=== PATIENT | male | born 1975 | race Two or more races ===

== ENCOUNTER 2017-11-24 17:39 | Emergency (ER) | payer OTHER ==
--- NOTE | 2017-11-24 19:43 | ED Physician Documentation ---
PD HPI LOWER EXT INJURY - Stated complaint Stated Complaint: ANKLE PX - Chief complaint Chief Complaint: Ext Problem - History obtained from History obtained from: Patient - History of Present Illness PD HPI LOW EXT INJURY LOCATION: Right, Ankle Type of injury: No: Fall, Twist, Puncture wound Where injury occurred: Home Timing - onset: Today Timing - duration: Days (1) Timing - details: Gradual onset, Waxing and waning Worsened by: Palpating Associated symptoms: Swelling, Discolored (red). No: Weakness, Numbness Similar symptoms before: Has not had sx before Recently seen: Not recently seen Review of Systems Constitutional: denies: Fever, Chills, Myalgias Nose: denies: Rhinorrhea / runny nose, Congestion Throat: denies: Sore throat Cardiac: denies: Chest pain / pressure, Palpitations Respiratory: denies: Dyspnea, Cough, Wheezing Skin: reports: Rash. denies: Abrasion (s), Laceration (s) Neurologic: denies: Generalized weakness, Focal weakness, Numbness PD PAST MEDICAL HISTORY - Past Medical History Cardiovascular: None Respiratory: None Neuro: None Endocrine/Autoimmune: None Musculoskeletal: None - Present Medications Home Medications: Ambulatory Orders Medication Instructions Recorded Confirmed Dexamethasone [Decadron] 4 mg PO DAILY #5 tablet 11/24/17 Naproxen [Naprosyn] 500 mg PO BID #20 tablet 11/24/17 - Allergies Allergies/Adverse Reactions: Allergies Allergy/AdvReac Type Severity Reaction Status Date / Time No Known Drug Allergies Allergy Verified 11/24/17 17:58 PD ED PE NORMAL - Vitals Vital signs reviewed: Yes - General General: Alert and oriented X 3, No acute distress, Well developed/nourished - Neck Neck: Supple, no meningeal sign, No adenopathy - Cardiac Cardiac: RRR, No murmur - Respiratory Respiratory: Clear bilaterally - Derm Derm: Normal color, Warm and dry - Extremities Extremities: No edema, No calf tenderness / cord, Other (tender with swelling and redness anterolateal ankle and proximal foot. No skin sores nor lesions. ) Results - Vitals Vitals: Oxygen O2 Source Room air PD MEDICAL DECISION MAKING - ED course Complexity details: considered differential (anterolateral ankle and lateral dorsum of foot with tenderness and redness without injury. No h/o gout in the past but seems likely. No signs of infection. ), d/w patient - Sepsis Event Vital Signs: Oxygen O2 Source Room air Departure - Departure Disposition: 01 Home, Self Care Clinical Impression: Right ankle swelling Condition: Stable Record reviewed to determine appropriate education?: Yes Instructions: ED Arthritis Gout, ED Sprain Ankle Follow-Up: JOSIAS LOZANO [Primary Care Provider] - Prescriptions: Dexamethasone [Decadron] 4 mg PO DAILY #5 tablet Naproxen [Naprosyn] 500 mg PO BID #20 tablet Comments: Elevate and rest the ankle tonight and tomorrow. This may be a injury related such as a sprain or some arthritis. However without notable injury and given the redness and tenderness of it, I would consider an inflammatory condition such as gout. On initial episode we will treat it with anti-inflammatories and add Tylenol if needed. Recheck if not improved over the next several days or so. Follow-up if you have repeated episodes in the same area or other joints such as the big toe or other ankle as this may be more indicative of gout and then your primary care could suggest some preventive treatments as well. If this episode gets better and you do not have any recurrences to know particular follow-up as needed. Discharge Date/Time: 11/24/17 20:10
--- NOTE | 2017-11-24 19:44 | XRAY Report ---
Procedure Date: 11/24/2017 Accession Number: [id number] / [id number] Procedure: XR - Ankle 3 View RT CPT Code: FULL RESULT: EXAM: RIGHT ANKLE RADIOGRAPHY EXAM DATE: 11/24/2017 07:24 PM. CLINICAL HISTORY: Sudden onset of pain and swelling. COMPARISON: None. TECHNIQUE: 3 views. FINDINGS: Bones: Normal. No fractures or bone lesions. Joints: Normal. No effusion. No subluxations. The ankle mortise is normally aligned. Soft Tissues: Lateral soft tissue swelling. IMPRESSION: Bilateral soft tissue swelling, otherwise unremarkable ankle radiography. [facility]
[2017-11-24] MEDS ORDERED: NAPROXEN 250 MG TABLET PO STA (19:59)
[2017-11-24] MEDS ORDERED: DEXAMETHASONE 10 MG/ML VIAL PO STA (19:59)
[2017-11-24 20:11] VITALS: BP 133/79
== END 2017-11-24 20:10 | disposition home or self-care (01) ==
LOC: ED 17:39
DX: M25.471 Effusion, right ankle (principal); Z87.39 Personal history of other diseases of the musculoskeletal system and connective tissue
CPT/HCPCS: 73610; 99283; A9270

== ENCOUNTER 2020-05-13 09:53 | Outpatient (CLI) | payer OTHER ==
[2020-05-13 10:45] VITALS: BP 110/69
--- NOTE | 2020-05-13 10:45 | SLEEP CARE CONSULTATION ---
Information from patient questionnaire entered by Afshan Hong. I have reviewed and concur with the information entered by Afshan Hong. This document represents the service I personally performed and the decisions made by me, Frieda Boyle ARNP. History of Present Illness Service Date and Time: 05/13/2020 0953 Reason for Visit: New patient Chief Complaint: reports: Unrefreshed sleep, Snoring, Excessive daytime sleepiness, Observed pauses in breathing, Frequent awakenings at night Date of Onset: 20 years Usual bedtime: 11:30 pm Time it takes to fall asleep: 30 minutes to hours Snores at night: Yes Observed to quit breathing while asleep: Yes Sleeps alone due to snoring: Yes Number of times waking at night: 1-3 Reasons for waking at night: reports: Choking, Snoring, Gasping for air, Pain Toss, Turn, or Twitch while sleeping: Yes Recalls having dreams: Yes Usually gets out of bed at: 5:30 am; 7 am on weekends Feels refreshed in the morning: No Morning headache: Yes (sometimes; 3 times lasting 2 hours) Sleepy or fatigued during the day: Yes (sometimes) Ever fallen asleep while driving: Yes (drowsy driving, no accidents) Takes day naps: Yes (4 times week for 45 minutes) Dreams during day naps: No Prior sleep studies: No Additional HPI information: I had the pleasure of seeing BARBRA CONDE today regarding the possibility of him having a sleep disorder. His current complaints are observed pauses in breathing and frequent night awakenings. He states his and children tell him he snores really loud and his has heard him gasping in his sleep. He wakes up tired most days and is very sleepy during the day. He has morning headaches that last about 2 hours about 3 days a week. He has a history of depression, anxiety and hypertension. 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 Patient is and lives in [place]. Have you smoked in the past 12 months: Yes Cigarettes per day (20/pack): 20 Years of smokin Smoking Pack Years: 20.0 Alcohol use: No Caffeine use: Yes Caffeine amount and frequency: 1 soda per day Family History Family history of sleep disordered breathing: No Allergies and Home Medications Drug allergies reviewed: Yes (NKDA) Home medication list reviewed: Yes Allergy and home medication list: Lisinopril Atorvastatin Cymbalta, just started 5 days ago for anxiety Tylenol, prn Review of Systems Weight gain over past 5 years: 15 Cardiovascular: reports: high blood pressure Neurological: reports: headaches Psychiatric: reports: anxiety, depression Ear/Nose/Throat: reports: sinus problems, dry mouth/throat, wisdom teeth removed. denies: tonsillectomy Musculoskeletal: reports: joint pain, back pain Physical Exam Blood Pressure: 110/69 Cuff size: wrist Heart Rate: 60 O2 Saturation: 98 Height: 5 ft 10 in Weight: 230 lb Body Mass Index: 33.0 BMI Classification: Obese Neck circumference: 18 (inches) Nostrils: patent to airflow Turbinates: swollen Mouth and throat: narrow oropharynx Soft palate: long Hard palate: normal Uvula visualization: 25% Mallampati Class III Tongue: enlarged in size with teeth daniels on lateral edges Tonsils: 1+ Chin and jaw: normal size and position Neck: normal w/o lymphadenopathy or thyromegaly Heart: regular rate and rhythm Lungs: clear bilaterally Impression and Plan 1. Suspected Obstructive Sleep Apnea-Hypopnea Syndrome, as suggested by a history of loud and irregular snoring, observed cessation of breath while asleep, gasping or choking in sleep, frequent awakening during the night, unref reshed sleep, and excessive daytime sleepiness. Narrow oropharynx and obesity are common predisposing factors for obstructive sleep apnea-hypopnea syndrome. I recommend proceeding to polysomnography to confirm the diagnosis and to assess severity. If the patient has significant sleep disordered breathing, a manual CPAP titration study will also be performed to find the optimal treatment pressure. I informed the patient of what the sleep studies involve and after some discussion, obtained agreement to proceed. The pathophysiology of obstructive sleep apnea-hypopnea syndrome was discussed with the patient and health risks of cardiovascular and cerebrovascular disease if not treated. AAS brochure for obstructive sleep apnea-hypopnea syndrome given and reviewed. Risks of drowsy driving discussed in detail and patient advised to avoid long distance driving and to warehouse puller at the first sign of drowsiness. Patient agreed to plan. * Schedule polysomnography +- manual CPAP titration study and return in 1-2 weeks after the study to discuss result and initiate therapy. * Avoid long distance driving or driving when feeling sleepy. * Avoid alcohol, sedative and muscle relaxant around bedtime. * Attempt to lose weight. * Review instructions provided by trained office staff on how to prepare for the sleep study. * Return for follow-up after sleep study completed. Counseling Topics: Weight loss health impact Visit Type: In Office Time Spent with Patient (minutes): 31 Provider Statement: I spent 100% of the Face to Face Visit with the patient with greater than 50% spent counseling the patient and coordination of care.
== END 2020-05-13 09:54 | disposition home or self-care (01) ==
LOC: SC 09:53
PROVIDERS: ATTEND Nurse Practitioner Family
DX: R06.83 Snoring (principal); R06.81 Apnea, not elsewhere classified; G47.10 Hypersomnia, unspecified; G47.8 Other sleep disorders; E66.9 Obesity, unspecified; Z68.33 Body mass index [BMI] 33.0-33.9, adult; F17.210 Nicotine dependence, cigarettes, uncomplicated
CPT/HCPCS: 99203; 99212

== ENCOUNTER 2020-07-27 08:48 | Outpatient (CLI) | payer OTHER | END 2020-07-27 08:49 | disposition home or self-care (01) | LOC: SC 08:48 | PROVIDERS: ATTEND Nurse Practitioner Family | DX: G47.33 Obstructive sleep apnea (adult) (pediatric) (principal) | CPT/HCPCS: 95806 ==

== ENCOUNTER 2020-08-04 11:12 | Outpatient (CLI) | payer OTHER ==
--- NOTE | 2020-08-04 11:36 | SLEEP CARE CONSULTATION ---
Information from patient questionnaire entered by Afshan Hong. I have reviewed and concur with the information entered by Afshan Hong. This document represents the service I personally performed and the decisions made by , Frieda Boyle ARNP. History of Present Illness Service Date and Time: 08/04/2020 1112 Initial [place] Sleepiness Scale score: 13 (in 2020) Current [place] Sleepiness Scale score: 13 Additional HPI information: BARBRA CONDE returns for follow up and results of the recently performed home sleep study. I explained the pathophysiology behind obstructive sleep apnea. We then spent quite a bit of time discussing different treatment options. For mild obstructive sleep apnea, surgery and oral appliance are alternatives to nasal CPAP therapy but in moderate or severe cases, nasal CPAP is the most effective and reliable treatment. Because apnea is primarily in supine position, then positional management therapy could be effective. Methods discussed such as positioning with pillows, using a T-shirt with tennis balls in the back, and shown commercial products that have a pillow format on back to prevent supine sleep. I reviewed the impact of weight changes on sleep apnea and strongly recommended losing weight. After some discussion, the patient opted to go with the nasal CPAP therapy. Nasal autoCPAP set at 4-15 cmH20 will be ordered with rationale explained. A manual titration study will be ordered if unable to find optimal pressure with office adjustments. I explained how CPAP machine works with sample devices Respironics Dreamstation and ResTrusted Insight [id number] and what to expect when using the machine. Using CPAP every night in order to get used to it was emphasized. Patient advised to put CPAP mask on before getting into bed so as not to fall asleep without CPAP. To assist acclimation to CPAP use, it could also be used for a short time during day while reading or watching TV. The patient was instructed to call the CPAP supplier to discuss any mechanical problem that may occur. If the mask given is uncomfortable or is difficult to keep on through the night even with adjustment, contact the CPAP supplier as many will replace with another mask style if notified before 30 days. If snoring or perceives is not getting enough air or too much air from the machine, notify this office. [facility] patient education PAP tips reviewed and given to patient. Patient does not drink alcohol. Patient was cautioned about risks of drowsy driving until sleepiness symptoms resolve. Sleep Study - Results Type of Sleep Study: Home sleep study Prior sleep studies: No Polysomnography/Home Sleep Study results: Physician Impression: The quality of the study is good. The length of the study is adequate (> 240 minutes). Please also see the tabulated and graphic data. 1. Obstructive Sleep Apnea-Hypopnea (ICD-10 G47.33), mild, with an AHI of 6.9/hr and puneet SaO2 of 86%. During the study, the patient had 15 apneas (15 obstructive, 0 central, 0 mixed) and 19 hypopneas. The longest episode lasted 79.0 seconds. The respiratory events occurred almost exclusively during supine sleep (supine AHI was 11.4 and non-supine, 3.05). 2. Hypoxemia (ICD-10 R09.02), minimal, with the lowest oxygen saturation of 86 % and 0.9 minutes with SaO2 under 90%. Baseline oxygen saturation was normal (Average oxygen saturation was 95%). Allergies and Home Medications Home medication list reviewed: Yes (no new meds) Review of Systems Review of systems same as previous: Yes (no changes) Physical Exam Heart Rate: 61 O2 Saturation: 96 Height: 5 ft 10 in Weight: 238 lb Body Mass Index: 34.1 BMI Classification: Obese Impression and Plan 1. Obstructive Sleep Apnea-Hypopnea Syndrome, mild, with lowest oxygen saturation of 86%. Obviously this is the cause of the patients symptoms of unrefreshed sleep, and excessive daytime sleepiness. Positive pressure therapy could benefit hypertension, anxiety and depression. As mentioned above, the patient will be started on nasal autoCPAP therapy with pressure set at 4-15 cmH2 O. A manual titration study will be completed if unable to find optimal treatment pressure with office adjustments. Compliance guidelines also reviewed. A copy of compliance guidelines will be given for reference at check out. Because the apnea is more severe supine, I instructed to avoid sleeping supine using pillow positioning until able to start CPAP use. * Nasal auto CPAP therapy, pressure at 4-15 cm H2O. * Attempt to lose weight. * Avoid alcohol consumption near bedtime. * Avoid supine sleep until using CPAP. * The patient is again cautioned about driving until sleepiness completely resolves. * Return one month after CPAP obtained. I will assess response to therapy and compliance at that time. Counseling Topics: Weight loss health impact Visit Type: In Office Time Spent with Patient (minutes): 20 Provider Statement: I spent 100% of the Face to Face Visit with the patient with greater than 50% spent counseling the patient and coordination of care.
== END 2020-08-04 11:13 | disposition home or self-care (01) ==
LOC: SC 11:12
PROVIDERS: ATTEND Nurse Practitioner Family
DX: G47.33 Obstructive sleep apnea (adult) (pediatric) (principal); E66.9 Obesity, unspecified; Z68.34 Body mass index [BMI] 34.0-34.9, adult
CPT/HCPCS: 99212; 99213

== ENCOUNTER 2020-09-02 19:59 | Emergency (ER) | payer OTHER ==
[2020-09-02 20:30] VITALS: BP 138/76
--- OUTSIDE RECORDS SUMMARY | 2020-09-02 20:33 | EXTERNAL MEDICAL SUMMARY RPT | Continuity of Care Document ---
:1975 Demographics Phone Unavailable Preferred Language Unknown Marital Status Unknown Congregation Affiliation Unknown Race Unknown Ethnic Group Unknown Author Organization [facility] Address [address] [place] [address] Phone Allergies Encounters Medications Problems Results
--- NOTE | 2020-09-02 21:02 | ED Physician Documentation ---
History of Present Illness - Stated complaint Stated Complaint: RIGHT TOE INJURY - Chief complaint Chief Complaint: Trauma Ext - Additonal information Additional information: 44-year-old male comes to the emergency department for evaluation of acute right ring toe pain sustained when he stubbed his foot yesterday evening hyperextending the toe. He now has swelling and ecchymosis of the ring toe. He has injured this foot and toe in the past. He is able to bear weight on the foot though painful when he places pressure on the toe. No obvious deformity. Review of Systems Constitutional: reports: Reviewed and negative Ears: reports: Reviewed and negative Nose: reports: Reviewed and negative Throat: reports: Reviewed and negative Cardiac: reports: Reviewed and negative Respiratory: reports: Reviewed and negative Musculoskeletal: reports: Extremity pain (right ring toe) PD PAST MEDICAL HISTORY - Past Medical History Past Medical History: Yes Cardiovascular: Hypertension, High cholesterol Respiratory: None Neuro: None Endocrine/Autoimmune: None GI: Hiatal hernia Psych: Depression, Anxiety Musculoskeletal: None - Past Surgical History Past Surgical History: Yes General: Other - Present Medications Home Medications: Ambulatory Orders Medication Instructions Recorded Confirmed Atorvastatin [Lipitor] 20 mg PO DAILY 09/02/20 09/02/20 Lisinopril [Zestril] 20 mg PO DAILY 09/02/20 09/02/20 Sertraline HCl [Zoloft] 100 mg PO DAILY 09/02/20 09/02/20 - Allergies Allergies/Adverse Reactions: Allergies Allergy/AdvReac Type Severity Reaction Status Date / Time No Known Drug Allergies Allergy Verified 09/02/20 20:29 - Social History Does the pt smoke?: No Smoking Status: Never smoker Does the pt drink ETOH?: No Does the pt have substance abuse?: No - Immunizations Immunizations are current?: Yes - POLST Patient has POLST: No PD ED PE EXPANDED - General General: Alert, No acute distress - Extremities Extremities: Right toe(s) (Ring toe is swollen and ecchymotic. No pain on base of the foot or metatarsals. No obvious deformity. 2+ DP pulse) Results - Vitals Vitals: Vital Signs - 24 hr 09/02/20 20:26 Temperature 36.2 C L Heart Rate 80 Respiratory 16 Rate Blood Pressure 138/76 H O2 Saturation 97 Oxygen O2 Source Room air - Rads (name of study) right foot Radiology: EMP read indepedently (No obvious fracture or dislocation.) PD MEDICAL DECISION MAKING - ED course Complexity details: reviewed results, re-evaluated patient, d/w patient ED course: 44-year-old male presents emergency department for evaluation of right ring toe pain sustained after he stubbed the toe yesterday evening hyperextending it. My review the x-ray shows no obvious fracture or dislocation. If there was one simple sergio taping would be appropriate. I have discussed this finding with the patient. At this time I favor contusion over fracture. Routine care and emergent return precautions were discussed. Departure - Departure Disposition: Home, Self Care Clinical Impression: Contusion of toe of right foot Qualifiers: Encounter type: initial encounter Toe: lesser toe Damage to nail status: without damage Qualified Code(s): S90.121A - Contusion of right lesser toe(s) without damage to nail, initial encounter Condition: Stable Record reviewed to determine appropriate education?: Yes Comments: [place] I have reviewed your x-ray and I do not see an obvious fracture of your toe or foot. I do suspect that you have bruised or contused this toe. I will notify you if the radiologist finds otherwise. However over the next 48 to 72 hours you may gently ice the foot. Can take Tylenol or ibuprofen [id number] for discomfort. You may find comfort from sergio taping the toe. If this is a subtle or occult fracture you may have persistent pain in the toe for a number of weeks. Return to the emergency department for fevers, red streaking swelling or any concerns of infection.
--- NOTE | 2020-09-02 21:23 | XRAY Report ---
PROCEDURE: Toe(s) RT INDICATIONS: injury to 4th toe, c/o pain TECHNIQUE: 3 views of the fourth toe(s) acquired. COMPARISON: None FINDINGS: Bones: No fractures or dislocations. No suspicious bony lesions. Soft tissues: No suspicious soft tissue densities. IMPRESSION: No acute fracture. No osseous lesion. If symptoms and/or clinical suspicion for pathology continue, f urther assessment with repeat plain films, or advanced imaging (e.g., CT, MRI, or bone scan) is recom mended for further assessment. Reviewed by: Rubio Khan MD on 09/02/2020 9:22 PM PDT Approved by: Rubio Khan MD on 09/02/2020 9:22 PM PDT Station ID: [id number]
== END 2020-09-02 21:55 | disposition home or self-care (01) ==
LOC: ED 19:59
DX: S90.121A Contusion of right lesser toe(s) without damage to nail, initial encounter (principal); W22.8XXA Striking against or struck by other objects, initial encounter; Y93.01 Activity, walking, marching and hiking; Y92.008 Other place in unspecified non-institutional (private) residence as the place of occurrence of the external cause; I10 Essential (primary) hypertension
CPT/HCPCS: 99282; 99283

== ENCOUNTER 2020-11-18 15:30 | Outpatient (CLI) | payer OTHER ==
--- NOTE | 2020-11-18 15:51 | SLEEP CARE CONSULTATION ---
Information from patient questionnaire entered by Nayana Linares. I have reviewed and concur with the information entered by Nayana Linares. This document represents the service I personally performed and the decisions made by , Frieda Boyle ARNP. History of Present Illness Service Date and Time: 11/18/2020 1530 Previous diagnosis: Mild, Obstructive Sleep Apnea-Hypopnea Syndrome AHI: 6.9 Reason for follow up: first compliance (Set up date 08/21) Equipment obtained from: Other ([employer]; got initial supplies) Mask style: Full face Backup mask available: No (will keep old mask when replaced) Last cushion change: 2 months Prior sleep studies: No Year and Where: [facility] Type of Sleep Study: Home sleep study HPI additional information: BARBRA CONDE was diagnosed to have mild, AHI 6.9, obstructive sleep apnea- hypopnea syndrome and returned today for CPAP therapy first compliance follow- up. CPAP Compliance Data - Data Reviewed with Patient Average duration of nightly device use: 5 h 5 min Compliance rate %: 63 Current pressure setting (cmH2O): 4-15 (median 7.4, avg 11.2, max 12.4) Average residual AHI: 0.9 Subjective Missed days of use due to: reports: other (will forget to put mask on) Patient concerns: reports: dry mouth, nose, throat (just a little). denies: aerophagia, mask discomfort, air blowing in eyes, mask leak noise, condensation in mask/hose, nasal congestion, epistaxis, other Observed to snore while using device: No Current pressure setting perceived as: comfortable On therapy, patient: reports: sleeping better, awakening more refreshed, being more awake and alert during the day, more rested overall. denies: drowsiness while driving Initial [place] Sleepiness Scale score: 13 (in 2020) Current [place] Sleepiness Scale score: 14 Allergies and Home Medications Home medication list reviewed: Yes (Trazodone) Review of Systems Review of systems same as previous: Yes (no changes) Physical Exam Heart Rate: 77 O2 Saturation: 98 Height: 5 ft 10 in Weight: 243 lb Body Mass Index: 34.8 BMI Classification: Obese Impression and Plan 1. Obstructive Sleep Apnea-Hypopnea Syndrome, mild, with fair treatment compliance and excellent apnea control. On CPAP therapy, the patient has better sleep quality and is more rested overall. Patient likes the current setting and has requested it not be changed. He has very good apnea control at current setting. I will not adjust his pressure today. His compliance has dropped a little because he has been falling asleep without the mask. He plans on making an alarm to remind him to put on mask. He likes the benefits he gets when he sleeps with the CPAP machine. Patient's apnea severity and rationale for treatment to reduce apnea, improve sleep quality and reduce cardiovascular and cerebrovascular events was reviewed. I also reviewed the benefit of consistent device use of CPAP for hypertension, depression and anxiety. * Continue autoCPAP pressure at 4-15 cmH2O * Notify me if snoring with mask or feeling that the pressure is too much or too little * Attempt to lose weight * Call this office if any problems using CPAP * Return for follow up in 3 months, or sooner if concerns arise Counseling Topics: Spare mask, Weight loss health impact Visit Type: In Office Time Spent with Patient (minutes): 17 Provider Statement: I spent 100% of the Face to Face Visit with the patient with greater than 50% spent counseling the patient and coordination of care.
== END 2020-11-18 15:31 | disposition home or self-care (01) ==
LOC: SC 15:30
PROVIDERS: ATTEND Nurse Practitioner Family
DX: G47.33 Obstructive sleep apnea (adult) (pediatric) (principal); E66.9 Obesity, unspecified; Z68.34 Body mass index [BMI] 34.0-34.9, adult
CPT/HCPCS: 99212

== ENCOUNTER 2020-11-20 13:04 | Outpatient (CLI) | payer OTHER ==
--- NOTE | 2020-11-20 16:56 | XRAY Report ---
PROCEDURE: Humerus LT INDICATIONS: UNSPECIFIED FALL TECHNIQUE: 2 views of the humerus were acquired. COMPARISON: None FINDINGS: Bones: No fractures or dislocations. No suspicious bony lesions. Soft tissues: No suspicious soft tissue calcifications. IMPRESSION: No fracture. No osseous lesion. If there is continued clinical concern for pathology, then advanced i maging (CT, MRI, bone scan) should be considered for further evaluation. Reviewed by: KIKE Palacios on 11/20/2020 4:55 PM PDT Approved by: Jose Antonio Cantor MD on 11/20/2020 4:55 PM PDT Station ID: [id number]
== END 2020-11-20 13:05 | disposition home or self-care (01) ==
LOC: DI.N 13:04
PROVIDERS: ATTEND Nurse Practitioner
DX: S40.022A Contusion of left upper arm, initial encounter (principal)

== ENCOUNTER 2021-02-17 15:25 | Outpatient (CLI) | payer OTHER ==
--- NOTE | 2021-02-17 15:52 | SLEEP CARE CONSULTATION ---
Information from patient questionnaire entered by Oseas Curtis MA. I have reviewed and concur with the information entered by Oseas Curtis MA. This document represents the service I personally performed and the decisions made by , Frieda Boyle ARNP. History of Present Illness Service Date and Time: 02/17/2021 1525 Previous diagnosis: Mild, Obstructive Sleep Apnea-Hypopnea Syndrome AHI: 6.9 Reason for follow up: three month (follow up) Equipment obtained from: Other ([employer] getting supplies as needed) Mask style: Full face Backup mask available: Yes (old mask) Last cushion change: 3 months Prior sleep studies: No Year and Where: [facility] Type of Sleep Study: Home sleep study HPI additional information: BARBRA CONDE was diagnosed to have mild, AHI 6.9, obstructive sleep apnea-hypopnea syndrome and returned today for CPAP therapy three month follow- up. Sleep Study - Results Type of Sleep Study: Home sleep study Prior sleep studies: No Year and Where: [facility] T CPAP Compliance Data - Data Reviewed with Patient Average duration of nightly device use: 4 hours 2 minutes Compliance rate %: 17 (90 days) Current pressure setting (cmH2O): 4-15 (median 7.0, avg 10.8, max 11.9) Average residual AHI: 5.0 Central apnea: 0.2 Obstructive apnea: 3.1 Subjective Missed days of use due to: reports: other (laziness/forgetful) Patient concerns: denies: aerophagia, mask discomfort, air blowing in eyes, mask leak noise, condensation in mask/hose, nasal congestion, dry mouth, nose, throat, epistaxis, other Observed to snore while using device: No Current pressure setting perceived as: comfortable On therapy, patient: reports: sleeping better, awakening more refreshed, being more awake and alert during the day, more rested overall. denies: drowsiness while driving Initial [place] Sleepiness Scale score: 13 (in 2020) Current [place] Sleepiness Scale score: 13 Allergies and Home Medications Home medication list reviewed: Yes (no changes) Review of Systems Review of systems same as previous: Yes (no changes) Physical Exam Blood Pressure: 117/70 (right) Cuff size: wrist Heart Rate: 81 O2 Saturation: 98 Height: 5 ft 10 in Weight: 248 lb Body Mass Index: 35.6 BMI Classification: Obese Impression and Plan 1. Obstructive Sleep Apnea-Hypopnea Syndrome, mild, with poor treatment compliance and good apnea control. On CPAP therapy, the patient has better sleep quality and is more rested overall. He will fall asleep on the couch and wake up 5 hours later without the mask on. He will be reminded by his to put on his mask as well. He has seen significant improvement of tiredness when he does use the CPAP. He can sleep well with the CPAP since he changed to the full face mask. Compliance guidelines reviewed for insurance coverage. Patient was counseled on the difference between meeting compliance and optimal use of CPAP. Optimal use of CPAP is use of CPAP with all sleep to obtain maximum benefit of treatment. Patient is encouraged to use CPAP with all sleep. To prevent falling asleep without CPAP, patient advised to set a bedtime alarm on their phone for use while watching TV on couch or in bed. Patient's apnea severity and rationale for treatment to reduce apnea, improve sleep quality and reduce cardiovascular and cerebrovascular events was reviewed. I also reviewed the benefit of consistent device use of CPAP for hypertension, depression and anxiety. Patient was encouraged to lose weight for their overall health and to reduce apneas. * Continue auto CPAP pressure at 4-15 cmH2O * Notify me if snoring with mask or feeling that the pressure is too much or too little * Attempt to lose weight * Call this office if any problems using CPAP * Return for follow up in 1-2 months, or sooner if concerns arise Counseling Topics: Spare mask, Weight loss health impact Visit Type: In Office Time Spent with Patient (minutes): 20 Provider Statement: I spent 100% of the Face to Face Visit with the patient with greater than 50% spent counseling the patient and coordination of care.
[2021-02-17 15:53] VITALS: BP 117/70
== END 2021-02-17 15:26 | disposition home or self-care (01) ==
LOC: SC 15:25
PROVIDERS: ATTEND Nurse Practitioner Family
DX: G47.33 Obstructive sleep apnea (adult) (pediatric) (principal); E66.9 Obesity, unspecified; Z68.35 Body mass index [BMI] 35.0-35.9, adult
CPT/HCPCS: 99212; 99213

== ENCOUNTER 2021-04-21 12:59 | Outpatient (CLI) | payer OTHER ==
[2021-04-21 13:31] VITALS: BP 126/85
--- NOTE | 2021-04-21 13:31 | SLEEP CARE CONSULTATION ---
Information from patient questionnaire entered by Oseas Curtis MA. I have reviewed and concur with the information entered by Oseas Curtis MA. This document represents the service I personally performed and the decisions made by , Frieda Boyle ARNP. History of Present Illness Service Date and Time: 04/21/2021 1259 Previous diagnosis: Mild, Obstructive Sleep Apnea-Hypopnea Syndrome AHI: 6.9 Reason for follow up: other (2 MONTH F/U) Equipment type: CPAP Equipment obtained from: Other ([place]) Mask style: Full face Backup mask available: Yes (old mask) Prior sleep studies: No Year and Where: [facility] Type of Sleep Study: Home sleep study HPI additional information: BARBRA CONDE was diagnosed to have mild, AHI 6.9, obstructive sleep apnea- hypopnea syndrome and returned today for CPAP therapy two month follow-up. Sleep Study - Results Type of Sleep Study: Home sleep study Prior sleep studies: No Year and Where: [facility] T CPAP Compliance Data - Data Reviewed with Patient Average duration of nightly device use: 4 HOURS 7 MINUTES Compliance rate %: 33 (30 days; 25% last 60 days) Current pressure setting (cmH2O): 4-15 Average residual AHI: 1.4 Central apnea: 0.5 Obstructive apnea: 0.2 Subjective Missed days of use due to: reports: other (FORGETFULLNESS) Patient concerns: reports: mask leak noise. denies: aerophagia, mask discomfort, air blowing in eyes, condensation in mask/hose, nasal congestion, dry mouth, nose, throat, epistaxis, other Observed to snore while using device: No Current pressure setting perceived as: comfortable On therapy, patient: reports: sleeping better, awakening more refreshed, being more awake and alert during the day, more rested overall. denies: drowsiness while driving Initial [place] Sleepiness Scale score: 13 (in 2020) Current [place] Sleepiness Scale score: 13 (IN 2021) Allergies and Home Medications Known drug allergies: No Drug allergies reviewed: Yes Home medication list reviewed: Yes (no changes) Review of Systems Review of systems same as previous: Yes (no changes) Physical Exam Vital signs obtained and entered by: Shu CURTIS CMA AAELENI Blood Pressure: 126/85 (LEFT) Cuff size: wrist Heart Rate: 89 O2 Saturation: 96 (WITH PAPER MASK) Height: 5 ft 10 in Weight: 250 lb (WITH UNIFORM AND BOOTS) Body Mass Index: 35.9 BMI Classification: Obese Impression and Plan 1. Obstructive Sleep Apnea-Hypopnea Syndrome, mild, with poor treatment compliance and good apnea control. On CPAP therapy, the patient has better sleep quality and is more rested overall. Patient has been forgetting to put on the mask and falling asleep without it. To prevent falling asleep without CPAP, patient advised to set a bedtime alarm on their phone for use while watching TV on couch or in bed. Patient also states his is reminding him to put the mask on. He is trying to get into a routine to put on the mask after kids are put to bed while watching TV in bed. He states this is helping him not fall asleep without it on. Patient's apnea severity and rationale for treatment to reduce apnea, improve sleep quality and reduce cardiovascular and cer ebrovascular events was reviewed. I also reviewed the benefit of consistent device use of CPAP for hypertension, depression and anxiety. Patient has been gaining some weight and he thinks it is related to taking his Zoloft. He is going to discuss this will his PCP. Obesity increases the risk of apnea, CPAP pressure requirements and overall health risks especially cardiovascular and diabetes. Thus patient is advised to continue to try to lose weight. Weight loss can be done with reducing portion size, reducing refined foods and balancing content with vegetables, fruit and whole grain foods. In addition, patient encouraged to get regular exercise. Patient was encouraged to lose weight for their overall health and to reduce apneas. He voiced understanding. * Continue auto CPAP pressure at 4-15 cmH2O * Notify me if snoring with mask or feeling that the pressure is too much or too little * Attempt to lose weight * Call this office if any problems using CPAP * Return for follow up in 3 months, or sooner if concerns arise Counseling Topics: Spare mask, Weight loss health impact Visit Type: In Office Time Spent with Patient (minutes): 21 Provider Statement: I spent 100% of the Face to Face Visit with the patient with greater than 50% spent counseling the patient and coordination of care.
== END 2021-04-21 13:00 | disposition home or self-care (01) ==
LOC: SC 12:59
PROVIDERS: ATTEND Nurse Practitioner Family
DX: G47.33 Obstructive sleep apnea (adult) (pediatric) (principal); E66.9 Obesity, unspecified; Z68.35 Body mass index [BMI] 35.0-35.9, adult
CPT/HCPCS: 99212; 99213

== ENCOUNTER 2021-05-25 16:34 | Outpatient (CLI) | payer OTHER ==
--- NOTE | 2021-05-26 09:52 | XRAY Report ---
PROCEDURE: Foot 3 View LT INDICATIONS: CONTUSION OF L FOOT TECHNIQUE: 3 views of the foot were acquired. COMPARISON: None. FINDINGS: Bones: There is a minimally displaced fracture in the shaft of the fifth proximal phalanx. No disloca tions. There is mild degeneration at the first metatarsophalangeal joint. Hallux valgus alignment is present with a first metatarsophalangeal angle of approximately 30 degrees. No suspicious bony lesion s. Soft tissues: No tibiotalar joint effusion. Achilles tendon appears normal. IMPRESSION: 1. Minimally displaced fracture of the fifth proximal phalanx. 2. Hallux valgus alignment and mild degeneration of the first metatarsophalangeal joint. Reviewed by: Kamron Jett MD on 05/26/2021 9:50 AM PST Approved by: Kamron Jett MD on 05/26/2021 9:50 AM [facility] Station ID: [id number]
== END 2021-05-25 23:59 | disposition home or self-care (01) ==
LOC: DI.N 16:34
PROVIDERS: ATTEND Physician Assistant Medical
DX: S92.515A Nondisplaced fracture of proximal phalanx of left lesser toe(s), initial encounter for closed fracture (principal); S90.32XA Contusion of left foot, initial encounter; M20.12 Hallux valgus (acquired), left foot; M19.072 Primary osteoarthritis, left ankle and foot

== ENCOUNTER 2021-07-23 14:10 | Outpatient (CLI) | payer OTHER ==
[2021-07-23 14:37] VITALS: BP 99/68
--- NOTE | 2021-07-23 14:37 | SLEEP CARE CONSULTATION ---
Information from patient questionnaire entered by Oseas Curtis MA. I have reviewed and concur with the information entered by Oseas Curtis MA. This document represents the service I personally performed and the decisions made by , Frieda Boyle ARNP. History of Present Illness Service Date and Time: 07/23/2021 1410 Previous diagnosis: Mild, Obstructive Sleep Apnea-Hypopnea Syndrome AHI: 6.9 Reason for follow up: three month (RESMED, ) Equipment type: CPAP Equipment obtained from: Other ([employer]; needs to call for supplies) Mask style: Full face Mask brand: Respironics Backup mask available: Yes (old mask) Last cushion change: 2 months Prior sleep studies: No Year and Where: [facility] Type of Sleep Study: Home sleep study HPI additional information: BARBRA CONDE was diagnosed to have mild, AHI 6.9, obstructive sleep apnea- hypopnea syndrome and returned today for CPAP therapy three month follow-up. Sleep Study - Results Type of Sleep Study: Home sleep study Prior sleep studies: No Year and Where: [facility] CPAP Compliance Data - Data Reviewed with Patient Average duration of nightly device use: 4 HOURS 41 MINUTES Compliance rate %: 26 Current pressure setting (cmH2O): 4-15 Average residual AHI: 1.3 Central apnea: .4 Obstructive apnea: .3 Average large leak: 31.1 Subjective Missed days of use due to: reports: other (forgets to put the mask on) Patient concerns: denies: aerophagia, mask discomfort, air blowing in eyes, mask leak noise, condensation in mask/hose, nasal congestion, dry mouth, nose, throat, epistaxis, other Observed to snore while using device: No Current pressure setting perceived as: comfortable On therapy, patient: reports: sleeping better, awakening more refreshed, being more awake and alert during the day, more rested overall. denies: drowsiness while driving Initial [place] Sleepiness Scale score: 13 (in 2020) Current [place] Sleepiness Scale score: 13 (07/2021) Allergies and Home Medications Home medication list reviewed: Yes (no changes) Allergy and home medication list: Allergies No Known Drug Allergies Allergy (Verified 09/02/20 20:29) Review of Systems Review of systems same as previous: Yes (no changes) Physical Exam Vital signs obtained and entered by: Shu CURTIS CMA AAELENI Blood Pressure: 99/68 (left, pulse 102, rsp 20,) Heart Rate: 100 O2 Saturation: 95 (paper mask) Height: 5 ft 10 in Weight: 252 lb Weight change since last visit: 2 lb gain Body Mass Index: 36.1 BMI Classification: Obese Impression and Plan 1. Obstructive Sleep Apnea-Hypopnea Syndrome, mild, with poor treatment compliance and good apnea control. On CPAP therapy, the patient has better sleep quality and is more rested overall. Patient states he is just falling asleep without putting his mask on. He states he knows he is just being lazy and his has been getting after him. I encouraged him to put the mask on even when he is not completely ready for bed since he seems to be falling asleep while laying quietly reading or watching TV. He will replace his mask if he wakes up without it on. He does notice a difference when he does use the mask and does want to continue with the CPAP therapy. Patient's apnea severity and rationale for treatment to reduce apnea, improve sleep quality and reduce cardiovascular and cerebrovascular events was reviewed. I also reviewed the benefit of consistent device use of CPAP for hypertension, depression and anxiety. 2. Obesity, unspecified. Patient has gained weight. Currently patients BMI is 36.1. Obesity increases the risk of apnea, CPAP pressure requirements and overall health risks especially cardiovascular and diabetes. Thus patient is advised to lose weight. Weight loss can be done with reducing portion size, reducing refined foods and balancing content with vegetables, fruit and whole grain foods. In addition, patient encouraged to get regular exercise. The patient's CPAP pressure range should accommodate some weight loss. Symptoms to report for additional pressure adjustment discussed. * Continue auto CPAP pressure at 4-15 cmH2O * Notify me if snoring with mask or feeling that the pressure is too much or too little * Attempt to lose weight * Call this office if any problems using CPAP * Return for follow up in 3 months, or sooner if concerns arise Counseling Topics: Spare mask, Weight loss health impact Visit Type: In Office Time Spent with Patient (minutes): 20 Provider Statement: I spent 100% of the Face to Face Visit with the patient with greater than 50% spent counseling the patient and coordination of care.
== END 2021-07-23 14:11 | disposition home or self-care (01) ==
LOC: SC 14:10
PROVIDERS: ATTEND Nurse Practitioner Family
DX: G47.33 Obstructive sleep apnea (adult) (pediatric) (principal); E66.9 Obesity, unspecified; Z68.36 Body mass index [BMI] 36.0-36.9, adult
CPT/HCPCS: 99212; 99213

== ENCOUNTER 2021-12-10 14:58 | Outpatient (CLI) | payer OTHER ==
[2021-12-10 15:21] VITALS: BP 130/78
--- NOTE | 2021-12-10 15:21 | SLEEP CARE CONSULTATION ---
Information from patient questionnaire entered by Karen Major. I have reviewed and concur with the information entered by Karen Major. This document represents the service I personally performed and the decisions made by , Frieda Boyle ARNP. History of Present Illness Service Date and Time: 12/10/2021 1458 Previous diagnosis: Mild, Obstructive Sleep Apnea-Hypopnea Syndrome AHI: 6.9 Reason for follow up: other (6 WEEK F/U PRESSURE CHANGE, RESMED) Equipment type: CPAP Equipment obtained from: Other ([employer]; getting supplies) Mask style: Full face Backup mask available: Yes (old mask) Last cushion change: 2 weeks Prior sleep studies: No Year and Where: [facility] Type of Sleep Study: Home sleep study HPI additional information: BARBRA CONDE was diagnosed to have mild, AHI 6.9, obstructive sleep apnea- hypopnea syndrome and returned today for CPAP therapy six weeks with pressure change follow-up. Sleep Study - Results Type of Sleep Study: Home sleep study Prior sleep studies: No Year and Where: [facility] T CPAP Compliance Data - Data Reviewed with Patient Average duration of nightly device use: 4 hours 17 minutes Compliance rate %: 23 ( 01/07 days used) Current pressure setting (cmH2O): 4-8 Average residual AHI: 1.0 Average large leak: 4.1 L/min Compliance data discussion: Patient has a [employer] Airsense 10. Subjective Patient concerns: denies: aerophagia, mask discomfort, air blowing in eyes, mask leak noise, condensation in mask/hose, nasal congestion, dry mouth, nose, throat, epistaxis, other Observed to snore while using device: No Current pressure setting perceived as: comfortable On therapy, patient: reports: sleeping better, awakening more refreshed, being more awake and alert during the day, more rested overall. denies: drowsiness while driving Initial [place] Sleepiness Scale score: 13 (in 2020) Current [place] Sleepiness Scale score: 15 (12/10/21) Allergies and Home Medications Drug allergies reviewed: Yes (NKDA) Home medication list reviewed: Yes (sertraline 100 mg, bupropion 150 mg) Allergy and home medication list: Allergies No Known Drug Allergies Allergy (Verified 09/02/20 20:29) Review of Systems Review of systems same as previous: Yes (no changes) Physical Exam Vital signs obtained and entered by: WILLIAN, BARGE PILOT Blood Pressure: 130/78 (LEFT ARM ) Cuff size: regular Heart Rate: 73 O2 Saturation: 96 Height: 5 ft 10 in Weight: 254 lb Body Mass Index: 36.4 BMI Classification: Obese Impression and Plan 1. Obstructive Sleep Apnea-Hypopnea Syndrome, mild, with poor treatment compliance and good apnea control. On CPAP therapy, the patient has better sleep quality and is more rested overall. He is really noticing a difference on days he is able to wear his CPAP mask. He is continuing to increase time in the mask. He is tolerating the mask with pressure on for over 4 hours, he just needs to increase days in the mask. He voiced understanding and agreement. Patient's apnea severity and rationale for treatment to reduce apnea, improve sleep quality and reduce cardiovascular and cerebrovascular events was reviewed. I also reviewed the benefit of consistent device use of CPAP for hypertension, depression and anxiety. 2. Obesity, unspecified. Currently patients BMI is 36.4. Obesity increases the risk of apnea, CPAP pressure requirements and overall health risks especially cardiovascular and diabetes. Thus patient is advised to lose weight. * Continue auto CPAP pressure at 4-8 cmH2O * Continue Positional therapy when not using CPAP * Notify me if snoring with mask or feeling that the pressure is too much or too little * Attempt to lose weight * Call this office if any problems using CPAP * Return for follow up in 1-2 months, or sooner if concerns arise Counseling Topics: Spare mask, Weight loss health impact Visit Type: In Office Time Spent with Patient (minutes): 15 Provider Statement: I spent 100% of the Face to Face Visit with the patient with greater than 50% spent counseling the patient and coordination of care.
== END 2021-12-10 14:59 | disposition home or self-care (01) ==
LOC: SC 14:58
PROVIDERS: ATTEND Nurse Practitioner Family
DX: G47.33 Obstructive sleep apnea (adult) (pediatric) (principal); E66.9 Obesity, unspecified; Z68.36 Body mass index [BMI] 36.0-36.9, adult
CPT/HCPCS: 99212

== ENCOUNTER 2022-08-11 09:54 | Outpatient (CLI) | payer OTHER ==
[2022-08-11 11:48] LABS: BASOPHILS # (AUTO) 0.1 10^3/uL (0.0-0.1); BASOPHILS % (AUTO) 0.9 %; EOSINOPHILS # (AUTO) 0.2 10^3/uL (0.0-0.7); EOSINOPHILS % (AUTO) 3.7 %; HGB - HEMOGLOBIN 13.2 g/dL (14.0-18.0); LYMPHOCYTES # (AUTO) 1.8 10^3/uL (1.5-3.5); LYMPHOCYTES % (AUTO) 27.9 %; MEAN CORPUSCULAR HEMOGLOBIN 29.9 pg (27.0-31.0); MEAN CORPUSCULAR VOLUME 90.7 fL (80.0-94.0); MEAN PLATELET VOLUME 10.8 fL (7.4-11.4); MONOCYTES # (AUTO) 0.5 10^3/uL (0.0-1.0); MONOCYTES % (AUTO) 7.8 %; NEUTROPHILS # (AUTO) 3.9 10^3/uL (1.5-6.6); NEUTROPHILS % (AUTO) 59.2 %; PLT - PLATELET COUNT 293 10^3/uL (130-450); RED BLOOD COUNT 4.41 10^6/uL (4.70-6.10); RED CELL DISTRIBUTION WIDTH 13.5 % (12.0-15.0); WHITE BLOOD COUNT 6.5 x10^3/uL (4.8-10.8)
[2022-08-11 12:31] LABS: ESTIMATED AVERAGE GLUCOSE 114 mg/dL (70-100); HEMOGLOBIN A1c% 5.6 % (4.27-6.07)
[2022-08-11 14:19] LABS: ALBUMIN 4.2 g/dL (3.2-5.5); ALBUMIN/GLOBULIN RATIO 1.1 (1.0-2.2); ALKALINE PHOSPHATASE 106 IU/L (42-121); ALT ALANINE AMINOTRANSFERASE 29 IU/L (10-60); AST ASPARTATE AMINOTRANSFERASE 25 IU/L (10-42); BILIRUBIN,TOTAL 0.5 mg/dL (0.2-1.0); BUN - BLOOD UREA NITROGEN 9 mg/dL (6-20); CALCIUM 8.9 mg/dL (8.5-10.3); CARBON DIOXIDE - CO2 26 mmol/L (21-32); CHLORIDE 108 mmol/L (101-111); CHOL/HDL RATIO 5.6 (<5.0); CHOLESTEROL 163 mg/dL; CREATININE 0.8 mg/dL (0.6-1.2); GFR - MDRD 105 (>89); GLUCOSE 100 mg/dL (70-100); HDL CHOLESTEROL 29 mg/dL; LDL CHOLESTEROL,CALCULATED 106 mg/dL; LDL/HDL RATIO 3.7 (<3.6); POTASSIUM 4.4 mmol/L (3.5-5.0); SODIUM 137 mmol/L (135-145); TOTAL PROTEIN 8.1 g/dL (6.7-8.2); TRIGLYCERIDES 138 mg/dL; VLDL CHOLESTEROL 28 mg/dL
[2022-08-11 20:47] LABS: BILIRUBIN,URINE NEGATIVE (NEGATIVE); GLUCOSE, URINE (UA) NEGATIVE (NEGATIVE); KETONES,URINE (UA) NEGATIVE (NEGATIVE); LEUKOCYTE ESTERASE, URINE NEGATIVE (NEGATIVE); NITRITE,URINE NEGATIVE (NEGATIVE); OCCULT BLOOD,URINE NEGATIVE (NEGATIVE); PROTEIN,URINE NEGATIVE (NEGATIVE); UROBILINOGEN,URINE 0.2 (NORMAL) E.U./dL (NORMAL)
[2022-08-11 20:52] LABS: CLARITY,URINE CLEAR (CLEAR)
== END 2022-08-11 09:55 | disposition home or self-care (01) ==
LOC: LAB.N 09:54
PROVIDERS: ATTEND Nurse Practitioner
DX: I10 Essential (primary) hypertension (principal); E66.9 Obesity, unspecified; E78.5 Hyperlipidemia, unspecified
CPT/HCPCS: 36415; 80053; 80061; 81001; 81003; 83036; 83721; 85025

== ENCOUNTER 2023-06-19 16:33 | Outpatient (CLI) | payer OTHER ==
--- NOTE | 2023-06-19 17:01 | CT Report ---
PROCEDURE: Abdomen/Pelvis WO INDICATIONS: HEMATURIA TECHNIQUE: A CT scan of the abdomen and pelvis was performed without the use of intravenous contrast. Images we re recorded and evaluated at appropriate window settings. Reformats: coronal and sagittal. For radiat ion dose reduction, the following was used: automated exposure control, adjustment of mA and/or kV ac cording to patient size. COMPARISON: None. FINDINGS: Image quality: Diagnostic. Lower chest: Unremarkable. Liver: No contour-deforming mass. Gallbladder and biliary tree: No radiopaque stones or wall thickening. No biliary dilation. Spleen: No splenomegaly. Pancreas: No pancreatic ductal dilation. Adrenals: No adrenal nodule. Kidneys and ureters: No hydronephrosis. Nonobstructing 3 mm right renal stone. No renal cystic lesion which requires follow up. No solid mass. Stomach, bowel and peritoneum: No bowel distension. No pathologic free fluid. Diverticulosis without evidence of diverticulitis. Normal appendix. Lymph nodes: No central or retroperitoneal adenopathy. Vessels: No infrarenal aortic aneurysm. PELVIS Reproductive organs: Unremarkable. Bladder: No wall thickness, accounting for underdistention. Pelvic lymph nodes: No pelvic adenopathy by size criteria. Bones: No aggressive osseous abnormality. Mild degenerative changes of the lower lumbar spine. Other: No significant ventral or inguinal hernia. IMPRESSION: 1.Nonobstructing right renal stone measuring 3 mm. No hydronephrosis. 2.Diverticulosis without evidence of acute diverticulitis. Reviewed by: Gino Funes MD on 06/19/2023 5:00 PM PDT Approved by: Gino Funes MD on 06/19/2023 5:00 PM PDT Station ID: [id number]
== END 2023-06-19 16:34 | disposition home or self-care (01) ==
LOC: DI 16:33
PROVIDERS: ATTEND Physician Assistant Medical
DX: N20.0 Calculus of kidney (principal); K57.30 Diverticulosis of large intestine without perforation or abscess without bleeding; R31.9 Hematuria, unspecified

== ENCOUNTER 2023-08-19 11:37 | Outpatient (CLI) | payer OTHER ==
[2023-08-19 18:47] LABS: BASOPHILS # (AUTO) 0.1 10^3/uL (0.0-0.1); BASOPHILS % (AUTO) 0.6 %; EOSINOPHILS # (AUTO) 0.3 10^3/uL (0.0-0.7); HCT - HEMATOCRIT 38.9 % (42.0-52.0); HGB - HEMOGLOBIN 12.6 g/dL (14.0-18.0); LYMPHOCYTES # (AUTO) 1.9 10^3/uL (1.5-3.5); LYMPHOCYTES % (AUTO) 23.5 %; MEAN CORPUSCULAR HEMOGLOBIN 29.6 pg (27.0-31.0); MEAN CORPUSCULAR HGB CONC 32.4 g/dL (32.0-36.0); MEAN CORPUSCULAR VOLUME 91.3 fL (80.0-94.0); MEAN PLATELET VOLUME 10.6 fL (7.4-11.4); MONOCYTES # (AUTO) 0.7 10^3/uL (0.0-1.0); MONOCYTES % (AUTO) 8.6 %; NEUTROPHILS # (AUTO) 5.3 10^3/uL (1.5-6.6); NEUTROPHILS % (AUTO) 63.9 %; PLT - PLATELET COUNT 276 10^3/uL (130-450); RED BLOOD COUNT 4.26 10^6/uL (4.70-6.10); RED CELL DISTRIBUTION WIDTH 13.8 % (12.0-15.0); WHITE BLOOD COUNT 8.2 x10^3/uL (4.8-10.8)
[2023-08-19 18:48] LABS: BILIRUBIN,URINE NEGATIVE (NEGATIVE); GLUCOSE, URINE (UA) NEGATIVE (NEGATIVE); KETONES,URINE (UA) NEGATIVE (NEGATIVE); LEUKOCYTE ESTERASE, URINE NEGATIVE (NEGATIVE); NITRITE,URINE NEGATIVE (NEGATIVE); OCCULT BLOOD,URINE NEGATIVE (NEGATIVE); PROTEIN,URINE NEGATIVE (NEGATIVE); UROBILINOGEN,URINE 0.2 (NORMAL) E.U./dL (NORMAL)
[2023-08-19 19:18] LABS: ALBUMIN 4.2 g/dL (3.2-5.5); ALBUMIN/GLOBULIN RATIO 1.4 (1.0-2.2); ALKALINE PHOSPHATASE 129 IU/L (42-121); ALT ALANINE AMINOTRANSFERASE 26 IU/L (10-60); AST ASPARTATE AMINOTRANSFERASE 20 IU/L (10-42); BILIRUBIN,TOTAL 0.6 mg/dL (0.2-1.0); BUN - BLOOD UREA NITROGEN 12 mg/dL (6-20); CALCIUM 9.3 mg/dL (8.5-10.3); CARBON DIOXIDE - CO2 28 mmol/L (21-32); CHLORIDE 104 mmol/L (101-111); CHOL/HDL RATIO 4.7 (<5.0); CHOLESTEROL 159 mg/dL; CREATININE 0.9 mg/dL (0.6-1.3); GFR - MDRD 91 (>89); GLUCOSE 72 mg/dL (74-104); HDL CHOLESTEROL 34 mg/dL; LDL CHOLESTEROL,CALCULATED 80 mg/dL; LDL/HDL RATIO 2.4 (<3.6); SODIUM 136 mmol/L (135-145); TOTAL PROTEIN 7.2 g/dL (6.4-8.9); TRIGLYCERIDES 223 mg/dL (48-352); VLDL CHOLESTEROL 45 mg/dL
[2023-08-19 19:25] LABS: THYROID STIMULATING HORMONE 1.89 uIU/mL (0.34-5.60)
[2023-08-19 19:46] LABS: FECAL OCCULT BLOOD (FIT) NEGATIVE (NEGATIVE)
[2023-08-19 20:30] LABS: CLARITY,URINE CLEAR (CLEAR)
[2023-08-19 20:31] LABS: BACTERIA,URINE None Seen /HPF (None Seen); RBC,URINE None Seen /HPF (0-5); SQUAMOUS EPITHELIAL CELL,UR NONE SEEN (<= Few); WBC,URINE 0-3 /HPF (0-3)
== END 2023-08-19 11:38 | disposition home or self-care (01) ==
LOC: LAB.N 11:37
PROVIDERS: ATTEND Nurse Practitioner
DX: Z00.00 Encounter for general adult medical examination without abnormal findings (principal); I10 Essential (primary) hypertension; Z12.11 Encounter for screening for malignant neoplasm of colon; Z12.5 Encounter for screening for malignant neoplasm of prostate; E78.5 Hyperlipidemia, unspecified; F41.9 Anxiety disorder, unspecified; F32.A Depression, unspecified
CPT/HCPCS: 36415; 80053; 80061; 81001; 82274; 83721; 84443; 85025

== ENCOUNTER 2023-08-20 12:16 | Outpatient (CLI) | payer OTHER | END 2023-08-20 12:17 | disposition home or self-care (01) | LOC: LAB 12:16 | PROVIDERS: ATTEND Nurse Practitioner | DX: Z00.00 Encounter for general adult medical examination without abnormal findings (principal); E78.5 Hyperlipidemia, unspecified; Z12.5 Encounter for screening for malignant neoplasm of prostate | CPT/HCPCS: 36415; 84153 ==

== ENCOUNTER 2023-12-14 18:49 | Outpatient (CLI) | payer OTHER ==
--- NOTE | 2023-12-15 09:07 | XRAY Report ---
PROCEDURE: Sacrum/Coccyx INDICATIONS: PAIN IN COCCYX TECHNIQUE: 3 views of the sacrum and coccyx acquired. COMPARISON: CT abdomen and pelvis without contrast 06/19/2023 FINDINGS: Overlying bowel gas limits optimal evaluation of the sacrum. Within this limitation, the sacral arcs are preserved. The sacroiliac joints are preserved. No coccygeal anteversion or retroversion. IMPRESSION: No acute bony abnormality. Reviewed by: Dmitriy Quiles MD on 12/15/2023 9:05 AM PDT Approved by: Dmitriy Quiles MD on 12/15/2023 9:05 AM PDT Station ID: [id number]
== END 2023-12-14 18:50 | disposition home or self-care (01) ==
LOC: DI 18:49
PROVIDERS: ATTEND Physician Assistant Medical
DX: M53.3 Sacrococcygeal disorders, not elsewhere classified (principal)